=== PATIENT | female | born 1965 | race Caucasian/White ===

== ENCOUNTER 2021-08-11 05:24 | Inpatient (IN) ==
[2021-08-06 13:02] LABS: Basophils # 0.1 10*3/uL (0.0-0.2); Basophils % 0.6 % (0.0-0.8); Eosinophils % 0.4 % (0.00-10.9); Hematocrit 38.6 VOL% (35.7-47.0); Hemoglobin 11.7 GM/DL (12.0-16.0); Immature Granulocytes % 0.8 %; Immature Granulocytes Absolute 0.08 #; Lymphocytes # 2.5 10*3/uL (1.4-4.0); Lymphocytes % 25.2 % (21.3-54.2); Mean Corpuscular HGB Conc 30.3 GM/DL (32-36); Mean Corpuscular Volume 86.9 FL (87-102); Mean Platelet Volume 10.1 FL (9.6-12.0); Monocytes # 0.8 10*3/uL (0.11-0.8); Monocytes % 8.4 % (1.7-12.7); Neutrophils % 64.6 % (38.7-73.9); Platelet Count 302 T/CUMM (130-400); Red Blood Count 4.44 MC/CUMM (3.8-5.5); Red Cell Distribution Width 18.3 % (9.3-17.3); White Blood Count 9.8 T/CUMM (4-12)
[2021-08-06 13:38] LABS: Calcium 8.9 MG/DL (8.5-10.1); Osmolality,Calculated 275.5 MOS/KG (273-304); Potassium 3.8 MMOL/L (3.5-5.1)
[2021-08-11] MEDS ORDERED: ceFAZolin 2,000 MG/50 ML DUPLEX IV ONE (06:00)
[2021-08-11] MEDS ORDERED: FAMOTIDINE 20 MG TABLET PO ONE (07:02)
[2021-08-11] MEDS ORDERED: DIAZEPAM 5 MG TABLET PO ONE (07:02)
[2021-08-11] MEDS ORDERED: ACETAMINOPHEN 500 MG TABLET PO ONE (07:03)
[2021-08-11] MEDS ORDERED: GABAPENTIN 400 MG CAPSULE PO ONE (07:03)
[2021-08-11] MEDS ORDERED: LACTATED RINGERS 1,000 ML IV SCH (07:30)
[2021-08-11] MEDS ORDERED: SUCCINYLCHOLINE 200 MG/10 ML VIAL ONE (07:42)
[2021-08-11] MEDS ORDERED: LIDOCAINE 2% 5 ML VIAL ONE (07:42)
[2021-08-11] MEDS ORDERED: fentaNYL 100 MCG/2 ML VIAL ONE ×3 (07:42→09:57)
[2021-08-11] MEDS ORDERED: propofoL 200 MG/20 ML VIAL IV ONE ×2 (07:42→11:15)
[2021-08-11] MEDS ORDERED: MIDAZOLAM 2 MG/2 ML VIAL ONE (07:42)
[2021-08-11] MEDS ORDERED: ROCURONIUM 50 MG/5 ML VIAL IV ONE (10:12)
[2021-08-11] MEDS ORDERED: SEVOFLURANE 1 UNIT/15 MINUTE INH ONE ×4 (10:12→11:15)
[2021-08-11] MEDS ORDERED: ONDANSETRON 4 MG/2 ML VIAL ONE (10:12)
[2021-08-11] MEDS ORDERED: LABETALOL 20 MG/4 ML SYRINGE IV ONE ×2 (10:12→11:16)
[2021-08-11] MEDS ORDERED: SUGAMMADEX 200 MG/2 ML VIAL IV ONE (11:18)
[2021-08-11] MEDS ORDERED: HYDROmorphone 1 MG/1 ML SYRINGE ONE ×2 (11:24→11:34)
[2021-08-11] MEDS ORDERED: MAGNESIUM HYDROXIDE SUSP 30 ML UDCUP PO PRN (11:39)
[2021-08-11] MEDS ORDERED: diphenhydrAMINE CAP 25 MG CAPSULE PO PRN (11:42)
[2021-08-11] MEDS ORDERED: BISACODYL 10 MG SUPP RECTAL PRN (11:42)
[2021-08-11] MEDS ORDERED: PROMETHAZINE 25 MG/1 ML VIAL IM PRN (11:42)
[2021-08-11] MEDS ORDERED: LACTULOSE 20 GM/30 ML UDCUP PO PRN (11:42)
[2021-08-11] MEDS ORDERED: DEXAMETHASONE 4 MG/1 ML VIAL ONE (11:45)
[2021-08-11] MEDS ORDERED: BUPIVACAINE 0.5% 50 ML VIAL ONE (11:45)
[2021-08-11] MEDS ORDERED: oxyCODONE/ACETAMINOPHEN 5-325 MG TABLET PO PRN (11:49)
[2021-08-11] MEDS ORDERED: MORPHINE 2 MG/1 ML SYRINGE IV PRN ×2 (11:50→11:58)
[2021-08-11] MEDS ORDERED: ONDANSETRON ODT 4 MG TABLET PO PRN (11:51)
[2021-08-11] MEDS ORDERED: ACETAMINOPHEN 325 MG TABLET PO PRN (11:51)
[2021-08-11] MEDS: ONDANSETRON 4 MG/2 ML VIAL IV PRN (14:02)
[2021-08-11] MEDS: LURASIDONE 120 MG PO SCH (16:57)
[2021-08-11] MEDS: ceFAZolin 2,000 MG/50 ML DUPLEX IV SCH (16:57)
[2021-08-11] MEDS: PROTEASE PO SCH (16:58)
[2021-08-11] MEDS: LIPASE PO SCH (16:58)
[2021-08-11] MEDS: AMYLASE PO SCH (16:58)
[2021-08-11] MEDS: oxyCODONE/ACETAMINOPHEN 5-325 MG TABLET PO PRN (20:41)
[2021-08-11] MEDS: carBAMazepine 200 MG TABLET PO SCH (20:41)
[2021-08-11] MEDS: DICYCLOMINE 20 MG TABLET PO SCH (20:41)
[2021-08-12] MEDS: ceFAZolin 2,000 MG/50 ML DUPLEX IV SCH ×2 (00:43→08:32)
[2021-08-12] MEDS: oxyCODONE/ACETAMINOPHEN 5-325 MG TABLET PO PRN ×5 (01:23→22:34)
[2021-08-12] MEDS: FONDAPARINUX 2.5 MG/0.5 ML SYRINGE SUBCUT SCH (05:55)
[2021-08-12] MEDS: FOLIC ACID 1 MG TABLET PO SCH (08:33)
[2021-08-12] MEDS: DICYCLOMINE 20 MG TABLET PO SCH ×2 (08:33→20:59)
[2021-08-12] MEDS: FERROUS SULFATE 325 MG TABLET PO SCH (08:33)
[2021-08-12] MEDS: DULoxetine 30 MG CAPSULE PO SCH ×2 (08:33→20:59)
[2021-08-12] MEDS: PROTEASE PO SCH ×4 (08:34→16:51)
[2021-08-12] MEDS: LIPASE PO SCH ×4 (08:34→16:51)
[2021-08-12] MEDS: NON-FORMULARY MEDICATION (Olmesartan-Hydrochlorothiazide 20-12.5 mg Tablet) PO SCH (08:34)
[2021-08-12] MEDS: AMYLASE PO SCH ×4 (08:34→16:51)
[2021-08-12] MEDS ORDERED: PANTOPRAZOLE 40 MG TABLET PO SCH (09:00)
[2021-08-12] MEDS: PANTOPRAZOLE 40 MG TABLET PO SCH (09:33)
[2021-08-12] MEDS: LURASIDONE 120 MG PO SCH (16:34)
[2021-08-12] MEDS: carBAMazepine 200 MG TABLET PO SCH (20:59)
[2021-08-13] MEDS: FONDAPARINUX 2.5 MG/0.5 ML SYRINGE SUBCUT SCH (05:28)
[2021-08-13] MEDS: oxyCODONE/ACETAMINOPHEN 5-325 MG TABLET PO PRN ×4 (05:29→23:38)
[2021-08-13] MEDS: ONDANSETRON 4 MG/2 ML VIAL IV PRN ×2 (06:37→16:14)
[2021-08-13] MEDS ORDERED: METHOTREXATE 2.5 MG TABLET PO SCH (09:00)
[2021-08-13] MEDS: DULoxetine 30 MG CAPSULE PO SCH ×2 (09:13→20:32)
[2021-08-13] MEDS: FOLIC ACID 1 MG TABLET PO SCH (09:13)
[2021-08-13] MEDS: PANTOPRAZOLE 40 MG TABLET PO SCH (09:13)
[2021-08-13] MEDS: BACLOFEN 10 MG TABLET PO PRN ×2 (09:13→20:32)
[2021-08-13] MEDS: DICYCLOMINE 20 MG TABLET PO SCH ×2 (09:13→20:32)
[2021-08-13] MEDS: NON-FORMULARY MEDICATION (Olmesartan-Hydrochlorothiazide 20-12.5 mg Tablet) PO SCH (09:17)
[2021-08-13] MEDS: PROTEASE PO SCH ×3 (09:17→16:19)
[2021-08-13] MEDS: AMYLASE PO SCH ×3 (09:17→16:19)
[2021-08-13] MEDS: LIPASE PO SCH ×3 (09:17→16:19)
[2021-08-13] MEDS: FERROUS SULFATE 325 MG TABLET PO SCH (09:18)
[2021-08-13] MEDS: LURASIDONE 120 MG PO SCH (16:19)
[2021-08-13] MEDS ORDERED: SKIN HEALING OINT (AQUAPHOR) 50 GM TUBE TOP PRN (18:03)
[2021-08-13] MEDS: carBAMazepine 200 MG TABLET PO SCH (20:32)
[2021-08-14] MEDS: FONDAPARINUX 2.5 MG/0.5 ML SYRINGE SUBCUT SCH (05:59)
[2021-08-14] MEDS: BACLOFEN 10 MG TABLET PO PRN (09:07)
[2021-08-14] MEDS: PANTOPRAZOLE 40 MG TABLET PO SCH (09:08)
[2021-08-14] MEDS: DICYCLOMINE 20 MG TABLET PO SCH (09:08)
[2021-08-14] MEDS: FERROUS SULFATE 325 MG TABLET PO SCH (09:08)
[2021-08-14] MEDS: FOLIC ACID 1 MG TABLET PO SCH (09:08)
[2021-08-14] MEDS: DULoxetine 30 MG CAPSULE PO SCH (09:08)
[2021-08-14] MEDS: oxyCODONE/ACETAMINOPHEN 5-325 MG TABLET PO PRN (09:08)
[2021-08-14] MEDS: PROTEASE PO SCH (09:13)
[2021-08-14] MEDS: AMYLASE PO SCH (09:13)
[2021-08-14] MEDS: NON-FORMULARY MEDICATION (Olmesartan-Hydrochlorothiazide 20-12.5 mg Tablet) PO SCH (09:13)
[2021-08-14] MEDS: LIPASE PO SCH (09:13)
[2021-08-14 11:51] VITALS: BP 113/51
== END 2021-08-14 11:50 | disposition swing bed (61) | DRG 493 ==
LOC: N.OR 05:24 → N.SDSINP 05:41 → N.3E 05:41
PROVIDERS: ADMIT Orthopaedic Surgery; ATTEND Orthopaedic Surgery